=== PATIENT | female | born 1960 | race Caucasian/White ===

== ENCOUNTER 2022-01-03 11:39 | Emergency (ER) | payer MEDICAID ==
[~2022-01-03] VITALS: Ht 152.4 cm; Wt 63.0 kg
[2022-01-03 12:43] LABS: CLARITY URINE CLOUDY (CLEAR); COLOR URINE DARK YELLOW (YELLOW); KETONES URINE TRACE (NEGATIVE); LEUKOCYTE ESTERASE URINE 3+ (NEGATIVE); NITRITE URINE NEGATIVE (NEGATIVE); OCCULT BLOOD URINE 3+ (NEGATIVE); PH URINE 6.5 (4.5-8.0); PROTEIN URINE 2+ (NEGATIVE); SPECIFIC GRAVITY URINE 1.022 (1.005-1.030)
[2022-01-03] MEDS ORDERED: HYDROCODONE/ACETAMINOPHEN 5/325MG TABLET PO ONE (14:15)
[2022-01-03 14:22] VITALS: BP 114/70
[2022-01-03] MEDS ORDERED: CEFTRIAXONE SODIUM 1 G/VIAL IM ONE (14:45)
[2022-01-03 15:07] LABS: HEMATOCRIT. 32.4 % (36.0-48.0); HEMOGLOBIN. 10.6 g/dL (12.0-16.0); MEAN CORPUSCULAR HEMOGLOBIN 24.8 pg (28.0-32.0); MEAN CORPUSCULAR VOLUME 75.9 fL (81.0-99.0); MEAN PLATELET VOLUME 9.5 fl (7.4-10.4); PLATELET 147 x1000/uL (130-400); RED BLOOD CELL COUNT 4.27 mill/uL (4.2-5.4); RED CELL DISTRIBUTION WIDTH 14.8 % (11.6-14.6)
[2022-01-03 15:15] LABS: CHLORIDE 102 mEq/L (98-107)
[2022-01-03 16:14] LABS: PLATELET ESTIMATE NORMAL
[2022-01-03] MEDS ORDERED: LIDOCAINE HCL 1% 20ML VIAL (Pyxis) INJ INFIL NR (16:15)
[2022-01-03] MEDS ORDERED: LIDOCAINE HCL/PF 1% 10 MG/ML 5ML VIAL INFIL ONE (16:15)
[2022-01-03] MEDS ORDERED: T3 PO (16:40)
[2022-01-03] MEDS ORDERED: IBUP-2029 MT (16:40)
[2022-01-03] MEDS ORDERED: CEPH500C2 MT (16:40)
[2022-01-05 14:08] LABS: NEISSERIA GONORRHOEAE NAA Negative (Negative)
== END 2022-01-03 16:58 | disposition home or self-care (01) ==
LOC: ER 11:39
DX: N93.8 Other specified abnormal uterine and vaginal bleeding (principal); D25.9 Leiomyoma of uterus, unspecified; N39.0 Urinary tract infection, site not specified; K80.80 Other cholelithiasis without obstruction; Z98.890 Other specified postprocedural states
CPT/HCPCS: 36415; 74176; 76830; 76856; 80053; 81003; 81025; 83690; 85025; 87086; 87210; 87491; 87591; 96372; 99284; J0696; J3490

== ENCOUNTER 2024-03-15 16:26 | Emergency (ER) | payer MEDICAID, OTHER ==
[~2024-03-15] VITALS: Ht 160 cm; Wt 67.0 kg
[~2024-03-15 16:26] MED LIST: CEPH500C2 MT; IBUP-2029 MT; T3 PO
[2024-03-15 16:38] VITALS: O2SAT 99
[2024-03-15 17:00] VITALS: TEMP 98.6
[2024-03-15 18:06] LABS: DIFFERENTIAL COMMENT 1; HEMATOCRIT. 41.6 % (36.0-48.0); HEMOGLOBIN. 13.9 g/dL (12.0-16.0); MEAN CORPUSCULAR HEMOGLOBIN 28.5 pg (28.0-32.0); MEAN CORPUSCULAR HGB CONC 33.4 g/dL (31.0-37.0); MEAN CORPUSCULAR VOLUME 85.2 fL (81.0-99.0); MEAN PLATELET VOLUME 12.2 fl (7.4-10.4); PLATELET 97 x1000/uL (130-400); RED BLOOD CELL COUNT 4.89 mill/uL (4.2-5.4); RED CELL DISTRIBUTION WIDTH 13.2 % (11.6-14.6); WHITE BLOOD COUNT 5.8 x1000/uL (4.5-11.0)
[2024-03-15] MEDS: MORPHINE SULFATE 4 MG/ML INJ (FOR IV/IM USE) IV ONE ×2 (18:08→19:21)
[2024-03-15] MEDS: ONDANSETRON HCL 4MG/2ML INJ IV ONE (18:08)
[2024-03-15 18:10] LABS: CHLORIDE 103 mEq/L (98-107); POTASSIUM 3.4 mEq/L (3.5-5.1); SODIUM 142 mEq/L (136-145)
[2024-03-15 18:11] LABS: CARBON DIOXIDE 29 mEq/L (21-32)
[2024-03-15 18:12] LABS: CALCIUM 8.6 mg/dL (8.7-10.4)
[2024-03-15 18:16] LABS: CREATININE 0.8 mg/dL (0.6-1.0); GLUCOSE 141 mg/dL (70-105); UREA NITROGEN BLOOD 10 mg/dL (9-23)
[2024-03-15 18:18] LABS: ALANINE AMINOTRANSFERASE 34 IU/L (10-49); ALBUMIN 4.2 g/dL (3.2-4.8); ASPARTATE AMINOTRANSFERASE 35 IU/L (<34)
[2024-03-15 18:19] LABS: BILIRUBIN DIRECT 0.2 mg/dL (<=3.0); BILIRUBIN TOTAL 0.5 mg/dL (0.1-1.0); PROTEIN TOTAL 7.2 g/dL (6.0-8.3)
[2024-03-15 18:51] LABS: PLATELET ESTIMATE DECREASED
[2024-03-15 19:12] LABS: HCG SCREEN NEGATIVE
[2024-03-15] MEDS: LACTATED RINGERS 1,000 ML IV SCH (22:34)
[2024-03-15] MEDS: IOHEXOL-300 100 ML BOTTLE ONE (22:52)
[2024-03-16 00:10] LABS: PROTHROMBIN TIME 11.2 sec (9.6-11.0)
[2024-03-16 02:00] VITALS: BP 112/56; PULSE 57; RESP 19
[2024-03-16] MEDS: PIPERACILLIN/TAZO 3.375G/50ML 50 ML IV SCH (07:46)
== END 2024-03-16 08:24 | disposition left against medical advice (07) ==
LOC: ER 16:26 → CANBEDREQ 03-16 08:12 → ER 03-16 08:24
DX: K56.609 Unspecified intestinal obstruction, unspecified as to partial versus complete obstruction (principal)
CPT/HCPCS: 80076; 80048; 84703; 83605; 85025; 85610; 85730; 86850; 86900; 86901; 87040; 36415; 74177; 93005; 96361; 96375; 96376; 99285; 96365; Q9967; J2405; J2270; J2543; Z7610

== ENCOUNTER 2024-03-17 05:35 | Emergency (ER) | payer OTHER ==
[~2024-03-17] VITALS: Ht 170.2 cm; Wt 73.0 kg
[2024-03-17 05:43] VITALS: O2SAT 98
[2024-03-17] MEDS: ONDANSETRON HCL 4MG/2ML INJ IV STA (05:54)
[2024-03-17] MEDS: MORPHINE SULFATE 4 MG/ML INJ (FOR IV/IM USE) IV STA (05:54)
[2024-03-17 08:35] LABS: BASOPHILS % 0.3 % (0.0-2.0); EOSINOPHILS % 0.7 % (0.0-5.0); HEMATOCRIT. 38.1 % (36.0-48.0); HEMOGLOBIN. 12.7 g/dL (12.0-16.0); LYMPHOCYTES % 8.2 % (20.0-50.0); MEAN CORPUSCULAR HEMOGLOBIN 28.5 pg (28.0-32.0); MEAN CORPUSCULAR HGB CONC 33.3 g/dL (31.0-37.0); MEAN CORPUSCULAR VOLUME 85.7 fL (81.0-99.0); MONOCYTES % 5.4 % (2.0-8.0); NEUTROPHILS % 85.4 % (40.0-76.0); PLATELET 84 x1000/uL (130-400); RED BLOOD CELL COUNT 4.44 mill/uL (4.2-5.4); RED CELL DISTRIBUTION WIDTH 12.7 % (11.6-14.6); WHITE BLOOD COUNT 4.4 x1000/uL (4.5-11.0)
[2024-03-17 08:36] LABS: PROTHROMBIN TIME 11.2 sec (9.6-11.0)
[2024-03-17 10:25] LABS: CHLORIDE 105 mEq/L (98-107); POTASSIUM 3.6 mEq/L (3.5-5.1); SODIUM 140 mEq/L (136-145)
[2024-03-17 10:26] LABS: CARBON DIOXIDE 28 mEq/L (21-32)
[2024-03-17 10:27] LABS: CALCIUM 8.1 mg/dL (8.7-10.4)
[2024-03-17 10:31] LABS: CREATININE 0.6 mg/dL (0.6-1.0); GLUCOSE 110 mg/dL (70-105); UREA NITROGEN BLOOD 13 mg/dL (9-23)
[2024-03-17 10:33] LABS: ALANINE AMINOTRANSFERASE 18 IU/L (10-49); ALBUMIN 3.5 g/dL (3.2-4.8); ASPARTATE AMINOTRANSFERASE 24 IU/L (<34)
[2024-03-17 10:34] LABS: BILIRUBIN TOTAL 0.6 mg/dL (0.1-1.0)
[2024-03-17] MEDS: SODIUM CHLORIDE 0.9% 1,000 ML IV ONE (11:00)
[2024-03-17 11:01] LABS: ETHANOL BLOOD < 10 mg/dL (<10)
[2024-03-17 11:21] LABS: TROPONIN I HIGH SENSITIVITY 4 ng/L (3.0-34)
[2024-03-17 13:18] VITALS: BP 97/75; PULSE 65; RESP 15; TEMP 98.7
[2024-03-17] MEDS: MORPHINE SULFATE 4 MG/ML INJ (FOR IV/IM USE) IV ONE (13:48)
== END 2024-03-17 13:34 | disposition short-term general hospital (02) ==
LOC: ER 05:35 → CANBEDREQ 14:33
DX: K56.609 Unspecified intestinal obstruction, unspecified as to partial versus complete obstruction (principal); E05.90 Thyrotoxicosis, unspecified without thyrotoxic crisis or storm; Z98.890 Other specified postprocedural states
CPT/HCPCS: 80053; 80320; 83690; 85025; 85610; 84484; 36415; 74176; 96361; 96374; 96375; 96376; 99291; J2405; J2270; J7030; Z7610; G0480